=== PATIENT | female | born 1945 ===

== ENCOUNTER 2023-09-19 03:22 | Emergency (ER) | payer MEDICARE, MEDICAID, SELFPAY ==
[2023-09-19] VITALS (10 sets, daily range): BP systolic 117–150; BP diastolic 61–80; PULSE 66–79; RESP 14; TEMP 36.9; O2SAT 95–98; BMI 31.0
--- NOTE | 2023-09-19 03:31 | DI.RAD.S_ITS ---
PROCEDURE: XR SHOULDER RT MIN 2V INDICATIONS: ATRAUMATIC ARM PAIN, CAN'T LIFT SHOULDER TECHNIQUE: 3 views of the shoulder were acquired. COMPARISON: None. FINDINGS: Bones: Overall mild degenerative changes of glenohumeral and acromioclavicular joints. No displaced fracture or dislocation. Soft tissues: No suspicious soft tissue calcifications. IMPRESSION: No acute osseous abnormality. Mild osteoarthritis changes. If there is high concern for further derangement, consider MRI evaluation. Agree with prelim report. Dictated by: Jersey Owusu M.D. on 09/19/2023 at 7:53 Approved by: Jersey Owusu M.D. on 09/19/2023 at 7:54
--- NOTE | 2023-09-19 03:43 | ED_ITS ---
HPI - Extremity Injury (Lower) General Chief Complaint: Extremity Injury, Upper Stated Complaint: R arm pain Time Seen by Provider: 09/19/23 03:31 Source: patient and EMS Mode of arrival: EMS History of Present Illness HPI Narrative: 78-year-old female presents by EMS from the [facility] living [facility] for atraumatic right shoulder pain. Patient reports pain has been present for several days, she has difficulty lifting her right arm above her head due to this pain. The nursing report states that there are no as needed medications available and patient requested to be evaluated at the hospital, so transport was arranged. Patient denies known injury or accidents. Denies numbness, weakness. Pain is vague and located roughly around the mid bicep and higher. Related Data Allergies Allergy/AdvReac Type Severity Reaction Status Date / Time No Known Drug Allergies Allergy Verified 09/19/23 04:10 Review of Systems Review of Systems Narrative: See HPI Exam Initial Vital Signs Initial Vital Signs: Vital Signs Pulse Rate 78 09/19/23 03:25 Blood Pressure 150/80 H 09/19/23 03:25 Pulse Oximetry 95 09/19/23 03:25 Const: Awake, alert, no acute distress, nontoxic appearing MSK: Atraumatic, no reproducible tenderness to palpation, pain when raising arm above 90 degrees, pulses/neuro intact Skin: Warm, Dry, intact, no rashes Neuro: AO x3, CN II-XII grossly intact, moves all extremities Course Orders Ordered: Discontinued Medications Acetaminophen (Acetaminophen 325 Mg Tablet) 975 mg PO NOW ONE Stop: 09/19/23 03:44 Last Admin: 09/19/23 04:31 Dose: 975 mg Documented By: SHANNON Ibuprofen (Ibuprofen 400 Mg Tablet) 400 mg PO NOW ONE Stop: 09/19/23 06:33 Last Admin: 09/19/23 06:34 Dose: 400 mg Documented By: SHANNON Vital Signs Vital signs: Vital Signs - 8 hr 09/19/23 03:25 09/19/23 03:25 09/19/23 03:30 Temperature Pulse Rate 78 79 Pulse Rate [Bilateral Radial] Respiratory Rate Blood Pressure 150/80 H Pulse Oximetry 95 96 Oxygen Delivery Method Room Air 09/19/23 03:30 09/19/23 03:31 09/19/23 03:36 Temperature 98.4 F Pulse Rate 79 Pulse Rate [Bilateral Radial] 79 Respiratory Rate 14 Blood Pressure 135/74 150/80 H Pulse Oximetry 95 Oxygen Delivery Method Room Air 09/19/23 04:00 09/19/23 04:00 09/19/23 04:30 Temperature Pulse Rate 73 77 Pulse Rate [Bilateral Radial] Respiratory Rate Blood Pressure 122/71 Pulse Oximetry 96 95 Oxygen Delivery Method Room Air Room Air MDM - Extremity Injury (Lower) MDM Narrative Medical decision making narrative: SEVERAL DAYS OF ATRAUMATIC RIGHT SHOULDER PAIN WITH MOVEMENT, SENT IN DUE TO PATIENT REQUEST AND NO AVAILABILITY OF NEEDED MEDICATIONS AT PATIENT'S ASSISTED FACILITY. PHYSICAL EXAM IS RELATIVELY UNREMARKABLE, PATIENT WAS ABLE TO MOVE THE EXTREMITY, SHE HAS VAGUE PAIN PARTICULARLY AROUND HER MID TO UPPER BICEPS. X-RAY IMAGING SHOWS NO ACUTE FINDINGS, OSTEOPENIA NOTED. PATIENT COUNSELED TO TAKE TYLENOL NEEDED FOR PAIN AND TO FOLLOW UP WITH ORTHOPEDIC SURGERY IF SHE CONTINUES TO EXPERIENCE PAIN. Discharge Plan Departure Patient Disposition: Home Clinical Impression: Pain of upper extremity Instructions: DI for Shoulder Pain Activity Restrictions/Additional Instructions: Please follow up with Orthopedic surgery if you continued to experience shoulder pain. For [facility] assisted living: Please allow this patient to have 650mg Tylenol po Q6H prn for pain Referrals: Veronica Beatty MD [Physician] - Stand Alone Forms: Patient Portal/API
[2023-09-19] MEDS: ACETAMINOPHEN 325 MG TABLET 975 MG PO (04:31)
--- NOTE | 2023-09-19 04:49 | PC.NURSE ---
Pt has incontinence and had small bowel movement. This RN cleaned her. Pt was able to assist while in bed. Pt pants and underwear were placed in a pt belongings bag. Placed clean brief on pt and cleaned up. Bedding changed. Pt is resting in bed, no complaints at this time.
--- NOTE | 2023-09-19 06:21 | PC.NURSE ---
Pt assisted to bathroom via wheelchair. Tolerated well. Assisted back to bathroom. Didd need a new depend and was assisted into a new one. No complaints at this time.
--- NOTE | 2023-09-19 06:24 | PC.NURSE ---
Andria, daughter, was contacted and updated on pt status and ready for discharge. Verbalized understanding. Denied any further questions.
[2023-09-19] MEDS: IBUPROFEN 400 MG TABLET PO (06:34)
== END 2023-09-19 06:50 | disposition home or self-care (01) ==
PROVIDERS: Emergency Provider Emergency Medicine
DX: M25.511 Pain in right shoulder (principal)
CPT/HCPCS: 73030; 99283

== ENCOUNTER 2023-12-15 14:04 | Emergency (ER) | payer MEDICARE, MEDICAID, SELFPAY ==
[2023-12-15] VITALS (14 sets, daily range): BP systolic 100–165; BP diastolic 55–109; PULSE 44–67; RESP 12; TEMP 36.9; O2SAT 91–96; BMI 13.0
[2023-12-15] MEDS: ONDANSETRON 4 MG/2 ML INJ IV (14:26)
[2023-12-15] MEDS: TRANEXAMIC ACID 1,000 MG VIAL 1000 MG TOP (14:27)
[2023-12-15] MEDS: HYDROMORPHONE 0.5 MG INJ IV (14:30)
--- NOTE | 2023-12-15 14:33 | ED.EPISTAXIS ---
HPI - Epistaxis General Chief complaint: Nasal Problem Stated complaint: Epistaxis Time Seen by Provider: 12/15/23 14:18 Source: EMS Mode of arrival: EMS History of Present Illness HPI Narrative: 78-year-old woman currently living at [facility] presents with severe epistaxis out the left side of her nose. She has never had similar findings. No recent upper respiratory infections. She currently is on Plavix. Medics had tried multiple doses of Afrin as well as Afrin-soaked gauze pellets and blood is still frankly pouring out of her left nostril. She is given a Yankauer suction so she does not keep swallowing the amount of blood. IV has been established. Blood pressure is significantly elevated unsure if this is due to the nosebleed or caused the nosebleed but certainly does need to be bit lower. Patient is not complaining of chest pain, dyspnea or abdominal pain Related Data Allergies Allergy/AdvReac Type Severity Reaction Status Date / Time No Known Drug Allergies Allergy Verified 12/15/23 14:11 Review of Systems Review of Systems Narrative: Pertinent positive and negative findings as per HPI Patient History Social History Smoking Status: Never smoker Smoking Status: Never smoker Substance Use Type: does not use Exam Initial Vital Signs Initial Vital Signs: Vital Signs Temperature 98.4 F 12/15/23 14:09 Pulse Rate 62 12/15/23 14:09 Respiratory Rate 12 12/15/23 14:09 Pulse Oximetry 96 12/15/23 14:09 Oxygen Delivery Method Room Air 12/15/23 14:09 General: Older appearing woman, nose is being clamped with fingers as epistaxis clamps have not been effective. There is still significant amount of red blood coming from both nostrils and out through the Yankauer Respiratory: Lungs show Full and symmetrical air movement Cardiac: Regular rate and rhythm no murmurs no bruits Skin: Warm and dry, no rashes Neurologic: Grossly neurologically intact with no obvious asymmetries or abnormalities Extremities: No trauma, well perfused Psych: Cooperative, appropriate insight and affect Procedures Epistaxis Control Time of procedure: 14:36 Nostril: left Nose Prepped With: other (0.5 mg of parenteral Dilaudid is given prior to procedure) Direct Inspection: unable to visualize (Almost pulsatile blood and fairly large volume flow persists from the left nostril) Device Inserted: hemostatic balloon (7.5 cm, saturated with TXA) Device Size: 75 Patient Tolerated Procedure: well Course Orders Ordered: Discontinued Medications Hydromorphone HCl (Hydromorphone 0.5 Mg Inj) 0.5 mg IV NOW ONE Stop: 12/15/23 14:29 Last Admin: 12/15/23 14:30 Dose: 0.5 mg Documented By: Ondansetron HCl (Ondansetron 4 Mg/2 Ml Inj) 4 mg IV NOW ONE Stop: 12/15/23 14:19 Last Admin: 12/15/23 14:26 Dose: 4 mg Documented By: Tranexamic Acid (Tranexamic Acid 1,000 Mg Vial) 1,000 mg TOP NOW ONE Stop: 12/15/23 14:19 Last Admin: 12/15/23 14:27 Dose: 1,000 mg Documented By: Vital Signs Vital signs: Vital Signs - 8 hr 12/15/23 14:09 12/15/23 14:09 12/15/23 14:10 Temperature 98.4 F Pulse Rate 62 62 62 Respiratory Rate 12 Blood Pressure Pulse Oximetry 96 95 95 Oxygen Delivery Method Room Air 12/15/23 14:10 12/15/23 14:30 12/15/23 14:32 Temperature Pulse Rate 62 67 Respiratory Rate Blood Pressure 164/109 H Pulse Oximetry 93 93 Oxygen Delivery Method 12/15/23 14:32 12/15/23 14:33 12/15/23 14:33 Temperature Pulse Rate 58 L Respiratory Rate Blood Pressure 165/91 H 129/75 Pulse Oximetry 92 Oxygen Delivery Method 12/15/23 15:00 12/15/23 15:00 12/15/23 15:30 Temperature Pulse Rate 44 L 51 L Respiratory Rate Blood Pressure 108/55 L Pulse Oximetry 94 91 Oxygen Delivery Method 12/15/23 15:30 12/15/23 16:00 12/15/23 16:00 Temperature Pulse Rate 47 L Respiratory Rate Blood Pressure 104/63 102/57 L Pulse Oximetry 93 Oxygen Delivery Method MDM - Epistaxis MDM Narrative Medical decision making narrative: CC: Left-sided epistaxis Complicating co-morbidities: Patient is on Plavix Data collected from: patient, medic Differential considered: Posterior arterial nosebleed, trauma, GI bleed Exam documented above, pertinent findings include: There is far too much volume of blood coming out the left nostril after a number of doses of Afrin to do any type of direct visualization Consultations: Treatments: 7.5 cm nasal packing with balloon placed without difficulty. With balloon inflated bleeding seemed to be well-controlled. We will continue to observe. 0.5 mg of IV Dilaudid given for pain posterior the nasal packing being placed as well as help with her elevated blood pressure Re-evaluations: Discussion: Patient is feeling significantly improved. Blood pressures come down nice lady. There was no additional bleeding after the nasal balloon has been placed. Discharge Plan Departure Patient Disposition: Home Clinical Impression: Epistaxis Instructions: DI for Nosebleed Activity Restrictions/Additional Instructions: Thank you for coming in today You had a rather impressive nosebleed. We placed a pack into your nose that has a small balloon on the inside to stop the bleeding. This was quite effective. That packing with the balloon we will need to come out in a couple of days and you will need to see Dr. Lopez, the Ear Nose and Throat doctor here in [place] in his office to have it removed. I did briefly speak with him this afternoon. Their office phone number is [phone]. Please give them a call tomorrow to schedule an ER follow up appointment to remove the nasal packing. His office is aware that you will be calling You will likely notice that you have some black stools over the next couple of days from the amount of blood that you swallowed from this nosebleed. We did give you some nausea medicine however, blood in your stomach often make sure throw up. You may vomit and may notice that there is blood clots in it. This would not be completely unexpected. If you have more bleeding, increasing pain, fevers or new symptoms you do need to return to the emergency department Referrals: Doctor Fenton MD [Primary Care Provider] - Stand Alone Forms: Patient Portal/API
--- NOTE | 2023-12-15 17:20 | PC.NURSE ---
Shari called with voicemail left at 1645. Called again with another voicemail left at [phone]. Daughter, Andria Her, called with voicemail left at 1720.
--- NOTE | 2023-12-15 18:08 | PC.NURSE ---
Called [facility] again and spoke with JEANETTE Clark. Report given. JEANETTE Clark reports no transportation after 1700, although this RN attempted to call prior to 1700. [facility] RE[facility] also states unable to pay for taxi. Pt reports no money for taxi either. emissions engineer made aware, voucher provided for patient. [facility] [employer] called, ETA [id number]. [facility] states will staff ready to receive patient on arrival.
== END 2023-12-15 18:43 | disposition home or self-care (01) ==
PROVIDERS: Emergency Provider Emergency Medicine
DX: R04.0 Epistaxis (principal)
CPT/HCPCS: 30903; 96374; 96375; 99283; 99284; J1170; J2405

== ENCOUNTER 2024-01-11 19:27 | Observation (INO) | payer MEDICARE, MEDICAID, SELFPAY ==
[2024-01-11] VITALS (39 sets, daily range): BP systolic 82–111; BP diastolic 50–70; PULSE 54–105; RESP 18–39; TEMP 36.9; O2SAT 95–100
--- NOTE | 2024-01-11 19:38 | EKG_ITS ---
[address] [address] Test Date: 2024-01-11 Pat Name: Christelle Mobley Department: [facility] Room: Gender: Female Air Pollution Analyst: FRANK : 1945 Requested By: Order Number: [id number] Reading MD: Lj Nava Measurements Intervals [place] Rate: 77 P: [place]: QRS: 8 QRSD: 80 T: 47 QT: 388 QTc: 439 Interpretive Statements Atrial fibrillation Nonspecific T wave abnormality Electronically Signed On 01-12-2024 8:48:56 PDT by Lj Nava
--- NOTE | 2024-01-11 19:46 | PC.NURSE ---
Dr Gomes notified of BP of
[2024-01-11 20:06] LABS: Prothrombin Time 11.5 SECONDS (9.4-12.5)
[2024-01-11 20:08] LABS: PTT Partial Thromboplastin Tim 27 SECONDS (25.1-36.5)
[2024-01-11 20:10] LABS: Alanine Aminotransferase 13 IU/L (<35); Albumin 3.8 g/dL (3.5-5.0); Albumin Globulin Ratio 1.5 (1.0-2.8); Alkaline Phosphatase 73 U/L (38-126); Aspartate Aminotransferase 20 IU/L (14-36); BUN Creatinine Ratio 59.5 (6-22); Bilirubin Total 0.3 mg/dL (0.2-1.3); Blood Urea Nitrogen 66 mg/dL (7-17); Calcium 9.4 mg/dL (8.4-10.2); Carbon Dioxide 21 mmol/L (22-32); Chloride 108 mmol/L (98-107); Estimated Glomerular Filt Rate 50 mL/min (>60); Globulin 2.6 g/dL (1.7-4.1); Glucose 141 mg/dL (80-110); HEMOLYSIS < 15 (0-50); Potassium 4.3 mmol/L (3.4-5.1); Sodium 139 mmol/L (137-145); Total Protein 6.4 g/dL (6.3-8.2)
[2024-01-11] MEDS: PANTOPRAZOLE 40 MG VIAL 80 MG IV (20:12)
[2024-01-11 20:13] LABS: Add Manual Diff / Slide Review NO; Basophils Absolute Auto 100 /uL (0-100); Basophils Percent Auto 0.7 % (0-2); Eosinophils Absolute Auto 100 /uL (0-450); Eosinophils Percent Auto 0.8 % (2-4); Lymphocytes Absolute Auto 900 /uL (1100-4500); Lymphocytes Percent Auto 9.5 % (25-40); Mean Corpuscular HGB Conc 32.3 % (30-36); Mean Corpuscular Hemoglobin 27.9 PG (26-34); Mean Corpuscular Volume 86.5 fL (80-100); Monocytes Absolute Auto 600 /uL (0-900); Monocytes Percent Auto 6.3 % (3-14); Neutrophils Absolute Auto 7600 /uL (1500-7000); Neutrophils Percent Auto 82.7 % (50-75); Platelet Count 227 X10^3/uL (150-400); Red Blood Cell Count 3.92 X10^6/uL (4.0-5.2); Red Cell Distribution Width 18.9 % (11.6-14.8); White Blood Cell Count 9.1 X10^3/uL (4.5-11.0)
--- NOTE | 2024-01-11 20:35 | ED.GIBLEED ---
HPI - GI Bleed General Chief complaint: GI Bleed Stated complaint: Abd Pain Time Seen by Provider: 01/11/24 19:47 Source: EMS History of Present Illness HPI Narrative: 78-year-old female presents by EMS from [facility] for evaluation of hematemesis. Patient complained of abdominal pain at the living facility and then vomited, reportedly blood and blood clots. Patient takes aspirin and Plavix per medical record list, no other blood thinners. On arrival patient was pleasantly confused, denying any complaints. Related Data Home Medications Medication Instructions Recorded Confirmed acetaminophen 325 mg tablet 325 mg PO PRN PRN Pain 01/12/24 01/12/24 alendronate 10 mg tablet 10 mg PO DAILY 01/12/24 01/12/24 aspirin 81 mg tablet,delayed 81 mg PO DAILY 01/12/24 01/12/24 release atorvastatin 20 mg tablet 20 mg PO DAILY 01/12/24 01/12/24 clopidogrel 75 mg tablet 75 mg PO DAILY 01/12/24 01/12/24 ferrous sulfate 324 mg (65 mg 324 mg PO DAILY 01/12/24 01/12/24 iron) tablet,delayed release lisinopril 5 mg tablet 5 mg PO DAILY 01/12/24 01/12/24 metoprolol tartrate 25 mg tablet 25 mg PO DAILY 01/12/24 01/12/24 sodium chloride 0.65 % nasal mist 1 spray intranasal PRN PRN nose 01/12/24 01/12/24 bleed sodium chloride 0.9 % spray 1 spray miscellaneous PRN PRN 01/12/24 01/12/24 moisten nose Allergies Allergy/AdvReac Type Severity Reaction Status Date / Time No Known Drug Allergies Allergy Verified 12/15/23 14:11 Patient History Social History Smoking Status: Never smoker Smoking Status: Never smoker Substance Use Type: does not use Exam Initial Vital Signs Initial Vital Signs: Vital Signs Temperature 98.5 F 01/11/24 19:30 Pulse Rate 75 01/11/24 19:30 Respiratory Rate 18 01/11/24 19:30 Blood Pressure 84/52 L 01/11/24 19:30 Pulse Oximetry 96 01/11/24 19:30 Oxygen Delivery Method Room Air 01/11/24 19:30 Const: Awake, alert, no acute distress Cardiac: regular rate, regular rhythm RESP: unlabored, clear bilaterally, no wheezing GI: Soft, nontender, nondistended Skin: Warm, Dry, intact, no rashes Neuro: AO x2, CN II-XII grossly intact, moves all extremities Course Orders Ordered: ED Orders 01/11/24 22:11 HH [Hemoglobin and Hematocrit] Stat 01/11/24 22:46 CT angio abdomen pelvis Stat Hydromorphone HCl (Hydromorphone 0.5 Mg Inj) 0.5 mg IV Q2H PRN PRN Reason: Pain, Severe (7-10) Dextrose/Lactated Ringer's (Dextrose 5%-Lactated Ringers) 1,000 mls @ 100 mls/hr IV CONT ILA Last Admin: 01/12/24 02:01 Dose: 100 mls/hr Documented By: SHOBHA Naloxone HCl (Naloxone 0.4 Mg/Ml Vial) 0.2 mg IV Q2MIN PRN PRN Reason: Opiate Reversal Ondansetron HCl (Ondansetron 4 Mg/2 Ml Inj) 4 mg IV NOW PRN PRN Reason: Nausea And Vomiting Ondansetron HCl (Ondansetron 4 Mg Odt) 4 mg SL NOW PRN PRN Reason: Nausea And Vomiting Ondansetron HCl (Ondansetron 4 Mg/2 Ml Inj) 4 mg IV Q4HR PRN PRN Reason: nausea Pantoprazole Sodium (Pantoprazole 40 Mg Vial) 40 mg IV BID [facility] Discontinued Medications Pantoprazole Sodium (Pantoprazole 40 Mg Vial) 80 mg IV NOW ONE Stop: 01/11/24 19:48 Last Admin: 01/11/24 20:12 Dose: 80 mg Documented By: TALA Vital Signs Vital signs: Vital Signs - 8 hr 01/11/24 23:30 01/12/24 00:00 01/12/24 00:22 Pulse Rate 64 57 L 55 L Respiratory Rate 23 25 H 34 H Blood Pressure Pulse Oximetry 97 96 97 Oxygen Delivery Method 01/12/24 00:22 01/12/24 00:25 01/12/24 00:30 Pulse Rate 54 L 56 L Respiratory Rate 25 H 32 H Blood Pressure 100/59 L 100/59 L Pulse Oximetry 95 97 Oxygen Delivery Method Room Air MDM - GI Bleed Differential Diagnosis Differential diagnosis: Likely hemorrhoids, Upper gastrointestinal hemorrhage and Lower gastrointestinal hemorrhage Lab Data 01/12/24 05:25 01/12/24 05:25 Labs: Lab Results 01/11/24 01/11/24 01/11/24 Range/Units 19:15 20:45 22:11 WBC 9.1 (4.5-11.0) X10^3/uL RBC 3.92 L (4.0-5.2) X10^6/uL Hgb 11.0 L 9.3 L (12.0-16.0) g/dL Hct 34.0 L 29.3 L (36-46) % MCV 86.5 (80-100) fL MCH 27.9 (26-34) PG MCHC 32.3 (30-36) % RDW 18.9 H (11.6-14.8) % Plt Count 227 (150-400) X10^3/uL Neut % (Auto) 82.7 H (50-75) % Lymph % (Auto) 9.5 L (25-40) % Miller % (Auto) 6.3 (3-14) % Eos % (Auto) 0.8 L (2-4) % Baso % (Auto) 0.7 (0-2) % Neut # (Auto) 7600 H (7727-2338) /uL Lymph # (Auto) 900 L (9773-9556) /uL Miller # (Auto) 600 (0-900) /uL Eos # (Auto) 100 (0-450) /uL Baso # (Auto) 100 (0-100) /uL PT 11.5 (9.4-12.5) SECONDS INR 1.0 (0.9-1.3) APTT 27 (25.1-36.5) SECONDS Sodium 139 (137-145) mmol/L Potassium 4.3 (3.4-5.1) mmol/L Chloride 108 H (98-107) mmol/L Carbon Dioxide 21 L (22-32) mmol/L BUN 66 H (7-17) mg/dL Creatinine 1.11 H (0.52-1.04) mg/dL Estimated GFR 50 L (>60) mL/min BUN/Creatinine Ratio 59.5 H (6-22) Glucose 141 H (80-110) mg/dL Calcium 9.4 (8.4-10.2) mg/dL Total Bilirubin 0.3 (0.2-1.3) mg/dL AST 20 (14-36) IU/L ALT 13 (<35) IU/L Alkaline Phosphatase 73 (38-126) U/L Total Protein 6.4 (6.3-8.2) g/dL Albumin 3.8 (3.5-5.0) g/dL Globulin 2.6 (1.7-4.1) g/dL Albumin/Globulin Ratio 1.5 (1.0-2.8) Urine RBC None seen (0-5/HPF) Urine WBC 1-5/hpf (0-5/HPF) Ur Squamous Epith Cells 0-1 /hpf (0-5/HPF) Urine Bacteria Few (2-10) H (None) Ur Culture Indicated? Specimen cultured Vol Urine Centrifuged 10ml (spun) Urine Dip Bedside Urine Glucose Negative Bedside Urine Bilirubin - Negative Bedside Urine Ketone - Negative Urine Specific [place] 1.015 Bedside Urine Occult Blood - Negative Bedside Urine pH 6.0 Bedside Urine Protein - Negative Bedside Urine Urobilinogen - Negative Bedside Urine Nitrite - Negative Bedside Urine Leukocytes + [address] scan - abdomen/pelvis: Radiologist's Impression: PROCEDURE: CT ANGIO ABDOMEN PELVIS INDICATIONS: HEMATEMESIS TECHNIQUE: After the administration of intravenous contrast, 2.5 mm sections acquired from the diaphragm to the iliac crests. 10 mm maximum intensity projection (MIP) coronal and sagittal reformats were then performed. For radiation dose reduction, the following was used: automated exposure control. COMPARISON: [facility], CT, CT KUB, 03/16/2023, 19:07. FINDINGS: Image quality: Diagnostic. Abdominal aorta: Included portion of the descending thoracic aorta is tortuous. No aortic aneurysm or evidence of acute aortic syndrome. moderate aortic atherosclerotic calcifications. Mesenteric arteries: Mild atherosclerotic calcifications within the celiac trunk and its branches without hemodynamically significant stenosis. There is narrowing of the proximal superior mesenteric artery estimated at 40% narrowed. Inferior mesenteric artery demonstrates mild atherosclerotic calcifications. Renal arteries: Atherosclerotic calcifications are seen at the origin of the right renal artery without intermittently significant stenosis. An accessory left renal artery is noted. Lower chest: Unremarkable. ABDOMEN: Liver: No solid mass. Gallbladder: Suspected gallstones. No pericholecystic inflammatory changes. Biliary ducts: No biliary dilation. Pancreas: No ductal dilation. Spleen: Size is within normal limits. Adrenal Glands: No adrenal nodules. Kidneys and Ureters: No hydronephrosis. No solid mass. No complex renal cystic lesion which requires follow up. Stomach and Bowel: Stomach is nondistended. Multiple diverticula are seen in the colon without signs of acute diverticulitis. No intraluminal extravasation of intravenous contrast material. Peritoneum: No abnormal intraperitoneal fluid. No free air. Ventral Wall: Fat containing periumbilical hernia. Abdominal Nodes: No retroperitoneal or mesenteric adenopathy by size criteria. Vessels: Aorta, as above. Normal IVC. PELVIS: Pelvic Organs: Status post hysterectomy. Bladder: Unremarkable. Pelvic Nodes: No enlarged lymph nodes. Miscellaneous: No inguinal hernias are seen. Bones: No aggressive osseous abnormality. Postsurgical changes from right total hip arthroplasty with associated metal streak artifact. Generalized osteopenia. Degenerative changes are seen in the spine. IMPRESSION: 1. No active extravasation of intravenous contrast material. 2. 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 3. Colonic diverticulosis without acute diverticulitis. 4. Suspected cholelithiasis. Approved by: Hardy Veliz M.D. on 01/11/2024 at 23:55 MDM Narrative Medical decision making narrative: Hematemesis at assisted living facility. Currently denying complaints. Aspirin and Plavix on medication list, no other blood thinners present on AUG. Protonix ordered. Laboratory work reviewed, initial hemoglobin 11, no previous in our system for comparison. CT angio of the abdomen shows no extravasation of contrast. Repeat hemoglobin 9.3. Patient's POLST form has patient as DNR, treatment towards comfort measures only. Deferred speaking to general surgery about endoscopy as this would fall outside of comfort directed care. Admitted for observation. While in the ED patient had no further episodes of bleeding and continued to deny any and all complaints. Discharge Plan Departure Patient Disposition: Admitted As Inpatient Clinical Impression: Blood transfusion during current hospitalization Admit Date/Time: 01/12/24 00:33 Admit Provider: Lew Beavers
[2024-01-11 22:24] LABS: Hematocrit 29.3 % (36-46); Hemoglobin 9.3 g/dL (12.0-16.0)
[2024-01-11 22:27] LABS: Bacteria Urine Few (2-10); Culture Indicated Urine Specimen Cultured; RBC Urine None Seen (0-5/HPF); Squamous Epithelial Cell Urine 0-1 /HPF (0-5/HPF); Urine Volume 10mL (spun); WBC Urine 1-5/HPF (0-5/HPF)
--- NOTE | 2024-01-11 22:46 | DI.CT.S_ITS ---
PROCEDURE: CT ANGIO ABDOMEN PELVIS INDICATIONS: HEMATEMESIS TECHNIQUE: After the administration of intravenous contrast, 2.5 mm sections acquired from the diaphragm to the iliac crests. 10 mm maximum intensity projection (MIP) coronal and sagittal reformats were then performed. For radiation dose reduction, the following was used: automated exposure control. COMPARISON: [facility], CT, CT KUB, 03/16/2023, 19:07. FINDINGS: Image quality: Diagnostic. Abdominal aorta: Included portion of the descending thoracic aorta is tortuous. No aortic aneurysm or evidence of acute aortic syndrome. moderate aortic atherosclerotic calcifications. Mesenteric arteries: Mild atherosclerotic calcifications within the celiac trunk and its branches without hemodynamically significant stenosis. There is narrowing of the proximal superior mesenteric artery estimated at 40% narrowed. Inferior mesenteric artery demonstrates mild atherosclerotic calcifications. Renal arteries: Atherosclerotic calcifications are seen at the origin of the right renal artery without intermittently significant stenosis. An accessory left renal artery is noted. Lower chest: Unremarkable. ABDOMEN: Liver: No solid mass. Gallbladder: Suspected gallstones. No pericholecystic inflammatory changes. Biliary ducts: No biliary dilation. Pancreas: No ductal dilation. Spleen: Size is within normal limits. Adrenal Glands: No adrenal nodules. Kidneys and Ureters: No hydronephrosis. No solid mass. No complex renal cystic lesion which requires follow up. Stomach and Bowel: Stomach is nondistended. Multiple diverticula are seen in the colon without signs of acute diverticulitis. No intraluminal extravasation of intravenous contrast material. Peritoneum: No abnormal intraperitoneal fluid. No free air. Ventral Wall: Fat containing periumbilical hernia. Abdominal Nodes: No retroperitoneal or mesenteric adenopathy by size criteria. Vessels: Aorta, as above. Normal IVC. PELVIS: Pelvic Organs: Status post hysterectomy. Bladder: Unremarkable. Pelvic Nodes: No enlarged lymph nodes. Miscellaneous: No inguinal hernias are seen. Bones: No aggressive osseous abnormality. Postsurgical changes from right total hip arthroplasty with associated metal streak artifact. Generalized osteopenia. Degenerative changes are seen in the spine. IMPRESSION: 1. No active extravasation of intravenous contrast material. 2. 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 3. Colonic diverticulosis without acute diverticulitis. 4. Suspected cholelithiasis. Approved by: Hardy Veliz M.D. on 01/11/2024 at 23:55
[2024-01-12] VITALS (9 sets, daily range): BP systolic 96–122; BP diastolic 49–67; PULSE 54–79; RESP 16–34; TEMP 36.2–36.6; O2SAT 95–98; BMI 30.2
[2024-01-12] MEDS: DEXTROSE 5%-LACTATED RINGERS 1,000 ML 100 ML IV ×3 (02:01→20:40)
--- NOTE | 2024-01-12 03:00 | PC.NURSE ---
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 Able to follow commands. Denies pain, nausea, SOB, or dizziness. VSS, O2 saturation 97% on RA. Cont tele monitoring & p/ox in place. IVF infusing as ordered. Patient is NPO. Ambulatory w/ 1PA & FWW. Oriented to call-light, fall precautions in place. Plan of care ongoing.
[2024-01-12 06:08] LABS: Add Manual Diff / Slide Review NO; Basophils Absolute Auto 0 /uL (0-100); Basophils Percent Auto 0.8 % (0-2); Eosinophils Absolute Auto 100 /uL (0-450); Eosinophils Percent Auto 1.1 % (2-4); Hematocrit 28.2 % (36-46); Hemoglobin 9.1 g/dL (12.0-16.0); Lymphocytes Absolute Auto 800 /uL (1100-4500); Lymphocytes Percent Auto 12.7 % (25-40); Mean Corpuscular HGB Conc 32.3 % (30-36); Mean Corpuscular Volume 86.7 fL (80-100); Monocytes Absolute Auto 700 /uL (0-900); Monocytes Percent Auto 11.5 % (3-14); Neutrophils Absolute Auto 4500 /uL (1500-7000); Neutrophils Percent Auto 73.9 % (50-75); Platelet Count 163 X10^3/uL (150-400); Red Blood Cell Count 3.25 X10^6/uL (4.0-5.2); Red Cell Distribution Width 18.8 % (11.6-14.8); White Blood Cell Count 6.1 X10^3/uL (4.5-11.0)
--- NOTE | 2024-01-12 06:15 | P.HP_ITS ---
History of Present Illness History of Present Illness Date Patient Seen: 01/12/24 Chief complaint: Abd Pain Narrative: 78 y/o resident of [facility], presented after she vomited blood. She was nauseated and had vague epigastric tenderness and she vomitted small amount of blood and blood clots before her arrival to ED. In the ED she did not have any further episodes. She was given 80 mg of Protonix IV. Hb > 11. She had severe left epistaxis a month ago when she was seen in ED and packed. No additional history of bleed. She is on ASA and Plavix. [facility] Social History Smoking Status: Never smoker Meds Home Medications and Allergies Home Medications Medication Instructions Recorded Confirmed Type acetaminophen 325 mg tablet 325 mg PO PRN PRN Pain 01/12/24 01/12/24 History alendronate 10 mg tablet 10 mg PO DAILY 01/12/24 01/12/24 History aspirin 81 mg tablet,delayed 81 mg PO DAILY 01/12/24 01/12/24 History release atorvastatin 20 mg tablet 20 mg PO DAILY 01/12/24 01/12/24 History clopidogrel 75 mg tablet 75 mg PO DAILY 01/12/24 01/12/24 History ferrous sulfate 324 mg (65 mg 324 mg PO DAILY 01/12/24 01/12/24 History iron) tablet,delayed release lisinopril 5 mg tablet 5 mg PO DAILY 01/12/24 01/12/24 History metoprolol tartrate 25 mg tablet 25 mg PO DAILY 01/12/24 01/12/24 History sodium chloride 0.65 % nasal mist 1 spray intranasal PRN PRN nose 01/12/24 01/12/24 History bleed sodium chloride 0.9 % spray 1 spray miscellaneous PRN PRN 01/12/24 01/12/24 History moisten nose Allergies Allergy/AdvReac Type Severity Reaction Status Date / Time No Known Drug Allergies Allergy Verified 12/15/23 14:11 Review of Systems Review of Systems Narrative: poor historian, she said that she takes no medications while on at least 10 scheduled meds Cardiovascular Comments: w/o chest pain Respiratory Comments: w/o shortness of breath Gastrointestinal Comments: epigastric tenderness, not at the time of admission nausea hematemesis Hematologic/Lymphatic Comments: severe nosebleed a month ago Exam Vital Signs (past 8 hours): - 01/11/24 22:30 01/11/24 23:00 01/11/24 23:30 Temperature Pulse Rate 57 L 57 L 64 Respiratory Rate 21 24 23 Blood Pressure Pulse Oximetry 98 97 Oxygen Delivery Method Oxygen Flow Rate 01/12/24 00:00 01/12/24 00:22 01/12/24 00:22 Temperature Pulse Rate 57 L 55 L Respiratory Rate 25 H 34 H Blood Pressure 100/59 L Pulse Oximetry 96 97 Oxygen Delivery Method Oxygen Flow Rate 01/12/24 00:25 01/12/24 00:30 01/12/24 02:00 Temperature 97.6 F Pulse Rate 54 L 56 L 79 Respiratory Rate 25 H 32 H 18 Blood Pressure 100/59 L 100/61 Pulse Oximetry 95 97 97 Oxygen Delivery Method Room Air Oxygen Flow Rate 0 01/12/24 02:29 Temperature Pulse Rate Respiratory Rate Blood Pressure Pulse Oximetry Oxygen Delivery Method Room Air Oxygen Flow Rate Oxygen Delivery Method Room Air Oxygen Flow Rate 0 Const Other: in no distress HENMT Other: normocephalic Neck Other: supple Resp Other: CTA Cardio Other: RRR GI Other: abdomen not distended, not tender Skin Other: w/o rashes Extrem Other: w/o swelling Psych Other: memory deficits Objective Labs 01/12/24 05:25 01/11/24 19:15 Labs: Laboratory Results - last 24 hr 01/11/24 01/11/24 01/11/24 19:15 20:45 22:11 WBC 9.1 RBC 3.92 L Hgb 11.0 L 9.3 L Hct 34.0 L 29.3 L MCV 86.5 MCH 27.9 MCHC 32.3 RDW 18.9 H Plt Count 227 Neut % (Auto) 82.7 H Lymph % (Auto) 9.5 L Wallace % (Auto) 6.3 Eos % (Auto) 0.8 L Baso % (Auto) 0.7 Neut # (Auto) 7600 H Lymph # (Auto) 900 L Wallace # (Auto) 600 Eos # (Auto) 100 Baso # (Auto) 100 PT 11.5 INR 1.0 APTT 27 Sodium 139 Potassium 4.3 Chloride 108 H Carbon Dioxide 21 L BUN 66 H Creatinine 1.11 H Estimated GFR 50 L BUN/Creatinine Ratio 59.5 H Glucose 141 H Calcium 9.4 Total Bilirubin 0.3 AST 20 ALT 13 Alkaline Phosphatase 73 Total Protein 6.4 Albumin 3.8 Globulin 2.6 Albumin/Globulin Ratio 1.5 Urine RBC None seen Urine WBC 1-5/hpf Ur Squamous Epith Cells 0-1 /hpf Urine Bacteria Few (2-10) H Ur Culture Indicated? Specimen cultured Vol Urine Centrifuged 10ml (spun) 01/12/24 05:25 WBC 6.1 RBC 3.25 L Hgb 9.1 L Hct 28.2 L MCV 86.7 MCH 28.0 MCHC 32.3 RDW 18.8 H Plt Count 163 Neut % (Auto) 73.9 Lymph % (Auto) 12.7 L Wallace % (Auto) 11.5 Eos % (Auto) 1.1 L Baso % (Auto) 0.8 Neut # (Auto) 4500 Lymph # (Auto) 800 L Wallace # (Auto) 700 Eos # (Auto) 100 Baso # (Auto) 0 PT INR APTT Sodium Potassium Chloride Carbon Dioxide BUN Creatinine Estimated GFR BUN/Creatinine Ratio Glucose Calcium Total Bilirubin AST ALT Alkaline Phosphatase Total Protein Albumin Globulin Albumin/Globulin Ratio Urine RBC Urine WBC Ur Squamous Epith Cells Urine Bacteria Ur Culture Indicated? Vol Urine Centrifuged Assessment & Plan Assessment and plan (1) Upper GI bleed: Status: Acute (2) Acute posthemorrhagic anemia: Status: Acute (3) HTN (hypertension): Status: Acute Assessment & Plan narrative: Upper GI Bleed - NPO, IV PPI, monitored CBC - IVFs - ASA and Plavix held - if deteriorates she will need EGD HTN - borderline hypotensive, holding home Lisinopril and metoprolol Memory Loss - likely chronic - supportive care DVT prophylaxis - SCDs Time-Based Coding :: [TOTAL MINUTES] spent with patient and on the chart (including review of chart, obtaining history, exam, reviewing outside data, placing orders, documenting exam and treatment plan, and counseling patient) on [DATE].
[2024-01-12 06:29] LABS: BUN Creatinine Ratio 58.2 (6-22); Blood Urea Nitrogen 46 mg/dL (7-17); Calcium 8.3 mg/dL (8.4-10.2); Carbon Dioxide 22 mmol/L (22-32); Chloride 112 mmol/L (98-107); Estimated Glomerular Filt Rate > 60 mL/min (>60); Glucose 115 mg/dL (80-110); HEMOLYSIS < 15 (0-50); Sodium 138 mmol/L (137-145)
--- NOTE | 2024-01-12 07:57 | P.HP_ITS ---
History of Present Illness History of Present Illness Date Patient Seen: 01/12/24 Chief complaint: Abd Pain Narrative: From night doctor: 78 y/o resident of [facility], presented after she vomited blood. She was nauseated and had vague epigastric tenderness and she vomited small amount of blood and blood clots before her arrival to ED. In the ED she did not have any further episodes. She was given 80 mg of Protonix IV. Hb > 11. She had severe left epistaxis a month ago when she was seen in ED and packed. No additional history of bleed. She is on ASA and Plavix. Additional information: She can not give a whole lot of additional detail about what happened. She denies any abdominal pain or recent melena or blood per rectum. She denies new, or recent nosebleed. She has had no recurrent regurgitation of blood since arriving. Her hemoglobin is stable. She was in an adult family home in [place]. She also can not say why she was on aspirin and Plavix. She denies history of heart stents, or TIA/CVA. [facility] Social History Smoking Status: Never smoker Meds Home Medications and Allergies Home Medications Medication Instructions Recorded Confirmed Type acetaminophen 325 mg tablet 325 mg PO PRN PRN Pain 01/12/24 01/12/24 History alendronate 10 mg tablet 10 mg PO DAILY 01/12/24 01/12/24 History aspirin 81 mg tablet,delayed 81 mg PO DAILY 01/12/24 01/12/24 History release atorvastatin 20 mg tablet 20 mg PO DAILY 01/12/24 01/12/24 History clopidogrel 75 mg tablet 75 mg PO DAILY 01/12/24 01/12/24 History ferrous sulfate 324 mg (65 mg 324 mg PO DAILY 01/12/24 01/12/24 History iron) tablet,delayed release lisinopril 5 mg tablet 5 mg PO DAILY 01/12/24 01/12/24 History metoprolol tartrate 25 mg tablet 25 mg PO DAILY 01/12/24 01/12/24 History sodium chloride 0.65 % nasal mist 1 spray intranasal PRN PRN nose 01/12/24 01/12/24 History bleed sodium chloride 0.9 % spray 1 spray miscellaneous PRN PRN 01/12/24 01/12/24 History moisten nose Allergies Allergy/AdvReac Type Severity Reaction Status Date / Time No Known Drug Allergies Allergy Verified 12/15/23 14:11 Review of Systems Review of Systems Narrative: All else reviewed and otherwise unremarkable except as noted in the history and physical. Exam Vital Signs (past 8 hours): - 01/12/24 00:00 01/12/24 00:22 01/12/24 00:22 Temperature Pulse Rate 57 L 55 L Respiratory Rate 25 H 34 H Blood Pressure 100/59 L Pulse Oximetry 96 97 Oxygen Delivery Method Oxygen Flow Rate 01/12/24 00:25 01/12/24 00:30 01/12/24 02:00 Temperature 97.6 F Pulse Rate 54 L 56 L 79 Respiratory Rate 25 H 32 H 18 Blood Pressure 100/59 L 100/61 Pulse Oximetry 95 97 97 Oxygen Delivery Method Room Air Oxygen Flow Rate 0 01/12/24 02:29 Temperature Pulse Rate Respiratory Rate Blood Pressure Pulse Oximetry Oxygen Delivery Method Room Air Oxygen Flow Rate Oxygen Delivery Method Room Air Oxygen Flow Rate 0 Narrative Exam Narrative: NAD, alert and oriented, fluent speech, calm. Slow to answer questions. Normocephalic skull, EOMI, anicteric sclera, symmetric pupils. Oropharynx unremarkable, no droop. Neck supple, midline trachea, no adenopathy. Lungs clear, normal rate and effort. Heart regular, no murmur gallop or rub. Abdomen is soft, non distended and non tender. Extremities are free of edema. Skin is free of rash or lesions. Joints are not swollen or deformed. Judgment appears to be abnormal. Objective Labs 01/12/24 05:25 01/12/24 05:25 Labs: Laboratory Results - last 24 hr 01/11/24 01/11/24 01/11/24 19:15 20:45 22:11 WBC 9.1 RBC 3.92 L Hgb 11.0 L 9.3 L Hct 34.0 L 29.3 L MCV 86.5 MCH 27.9 MCHC 32.3 RDW 18.9 H Plt Count 227 Neut % (Auto) 82.7 H Lymph % (Auto) 9.5 L [place] % (Auto) 6.3 Eos % (Auto) 0.8 L Baso % (Auto) 0.7 Neut # (Auto) 7600 H Lymph # (Auto) 900 L [place] # (Auto) 600 Eos # (Auto) 100 Baso # (Auto) 100 PT 11.5 INR 1.0 APTT 27 Sodium 139 Potassium 4.3 Chloride 108 H Carbon Dioxide 21 L BUN 66 H Creatinine 1.11 H Estimated GFR 50 L BUN/Creatinine Ratio 59.5 H Glucose 141 H Calcium 9.4 Total Bilirubin 0.3 AST 20 ALT 13 Alkaline Phosphatase 73 Total Protein 6.4 Albumin 3.8 Globulin 2.6 Albumin/Globulin Ratio 1.5 Urine RBC None seen Urine WBC 1-5/hpf Ur Squamous Epith Cells 0-1 /hpf Urine Bacteria Few (2-10) H Ur Culture Indicated? Specimen cultured Vol Urine Centrifuged 10ml (spun) 01/12/24 05:25 WBC 6.1 RBC 3.25 L Hgb 9.1 L Hct 28.2 L MCV 86.7 MCH 28.0 MCHC 32.3 RDW 18.8 H Plt Count 163 Neut % (Auto) 73.9 Lymph % (Auto) 12.7 L [place] % (Auto) 11.5 Eos % (Auto) 1.1 L Baso % (Auto) 0.8 Neut # (Auto) 4500 Lymph # (Auto) 800 L [place] # (Auto) 700 Eos # (Auto) 100 Baso # (Auto) 0 PT INR APTT Sodium 138 Potassium 4.0 Chloride 112 H Carbon Dioxide 22 BUN 46 H Creatinine 0.79 Estimated GFR > 60 BUN/Creatinine Ratio 58.2 H Glucose 115 H Calcium 8.3 L Total Bilirubin AST ALT Alkaline Phosphatase Total Protein Albumin Globulin Albumin/Globulin Ratio Urine RBC Urine WBC Ur Squamous Epith Cells Urine Bacteria Ur Culture Indicated? Vol Urine Centrifuged Assessment & Plan Assessment & Plan narrative: 1. Upper GI Bleed, present on admission and active. - NPO, IV PPI, monitored CBC - IVFs - ASA and Plavix held - if deteriorates she will need EGD HTN, present on admission and active. - borderline hypotensive, holding home Lisinopril and metoprolol Memory Loss, present on admission and active. - likely chronic - supportive care PLAN: -ice water and monitor for recurrent hematemesis. -monitor hemoglobin. -monitor stools. -hold antiplatelet therapy. GUILHERME is 01/12 if no recurrent bleeding. We will likely discharge on an PPI b.i.d.. DVT prophylaxis - SCDs Time-Based Coding :: 40 min spent with patient and on the chart (including review of chart, obtaining history, exam, reviewing outside data, placing orders, documenting exam and treatment plan, and counseling patient) on 01/11. Quality MIPS - Admit I confirm the patient?s Advance Care Plan is present, Code status is documented, Surrogate decision maker is in patient?s record [If Yes, STOP here]: Yes The patient?s Advance Care plan is not present because I confirmed today that the patient does not wish or was not able to name a surrogate decision maker or provide an Advance Care Plan.: Yes
[2024-01-12] MEDS: PANTOPRAZOLE 40 MG VIAL IV ×2 (09:49→20:31)
[2024-01-12] MEDS: ACETAMINOPHEN 325 MG TABLET 650 MG PO ×2 (12:23→23:55)
--- NOTE | 2024-01-12 14:05 | CM.DANOTE ---
Patient is an 78 yo female who was admitted OBS Status on 01/12/24 today for Abd Pain/GI bleed. Pt has [employer]ARP MCR and ANALY for insurance and her PCP is not listed but likely Dr. Ashraf. EMR was reviewed. Per MD, pt with vomiting and emesis and admitted for upper GI Bleed and anemia and per Surgeon no scope needed at this time unless pt not managed conservatively. Monitoring H&H. Pt sleeping soundly and requests SW to come back. POA scanned into chart and is pt's Dtr Andria in [place] and her POLST shows Comfort Measures. SW called [facility] and confirmed that pt is a [facility] resident and she moved into their facility in August 2023 this year a few months ago and pt is quiet but participates in meals and events and ambulates with FWW independently and they assist with meals and meds. SW updated on possible discharge back tomorrow pending her labs and to determine if PT eval might be needed if pt below baseline due to anemia. Plan: SW to follow closely for progress to determine if PT eval needed and confirm plan of return to [facility] at d/c and to fax d/c summ and signed med list at discharge. JULIA Brady Discharge Planning/Care Management CM Discharge Assessment Start: 01/12/24 14:02 Freq: Status: Active Protocol: Document 01/12/24 14:03 BF (Rec: 01/12/24 14:05 [id number]) Discharge Planning Assessment Assigned Emergency Room Rn JULIA Mireles DPOA/Assigned Designee Name Dtr Andria Contact Information [phone] Advance Directives? Yes: Yes/POLST Advance Directives on File Yes History Provided By Patient,Family Member,Medical Record Has Patient been admitted in last 30 No days? Prior Living Arrangements Assisted Living Comment [facility] none Type of transporation used prior to Relies on Others admit Independent with ADL's Yes: mostly Is patient alert and oriented? Yes Needs Assistance With Meal Prep,Managing Medications ,Home Chores / Shopping Caregiver for Another No DME Already Rented / Owned FWW / Walker Comment Return to [facility] Barriers to Discharge No Discharge Plan Assisted Living Facility Transportation Arrangement Likely facility van Referrals Initiated None needed Additional Comment Pending possible PT eval if needed Whiteboard Updated in Patient Room with Yes name and ext. # of Emergency Room Rn Review Status In Process Please Provide Date Initial DC 01/12/24 Assessment Was Performed Next Review Type Continued Stay Review
[2024-01-13] VITALS: BP 130/77; PULSE 80; RESP 17; TEMP 36.4; O2SAT 96
[2024-01-13 04:00] VITALS: BP 117/61; PULSE 63; RESP 17; TEMP 36.3; O2SAT 97
[2024-01-13] MEDS: DEXTROSE 5%-LACTATED RINGERS 1,000 ML 100 ML IV (06:03)
[2024-01-13 08:00] VITALS: BP 123/69; PULSE 58; RESP 20; O2SAT 95
[2024-01-13] MEDS: PANTOPRAZOLE 40 MG VIAL IV (08:55)
--- NOTE | 2024-01-13 10:18 | PM.DS.1 ---
History of Present Illness History of Present Illness Chief complaint: Abd Pain Narrative: From night doctor: 78 y/o resident of [facility], presented after she vomited blood. She was nauseated and had vague epigastric tenderness and she vomited small amount of blood and blood clots before her arrival to ED. In the ED she did not have any further episodes. She was given 80 mg of Protonix IV. Hb > 11. She had severe left epistaxis a month ago when she was seen in ED and packed. No additional history of bleed. She is on ASA and Plavix. Additional information: She can not give a whole lot of additional detail about what happened. She denies any abdominal pain or recent melena or blood per rectum. She denies new, or recent nosebleed. She has had no recurrent regurgitation of blood since arriving. Her hemoglobin is stable. She was in an adult family home in [place]. She also can not say why she was on aspirin and Plavix. She denies history of heart stents, or TIA/CVA. Discharge Providers Provider Date of admission: 01/12/24 00:33 Discharge Date: 01/13/24 Primary care physician: Doctor Eliceo MD Consults: None. Discharge provider: Lj Nava MD Summary Hospital Course Discharge Diagnosis: 1. Upper GI Bleed, present on admission and improved. 2. HTN, present on admission and active. 3. Memory Loss, present on admission and active. Hospital Course: She was admitted for 1 episode of hematemesis. She had no recurrent episodes nor did she have any black or red stool. Her hemoglobin remained stable. She was treated with a PPI b.i.d.. She had no abdominal pain. In the day of discharge she declined any blood draws. It was felt it would be reasonable to treat her with a PPI for 2-3 months for possible ulcer versus gastritis and clinically monitor her at her at her assisted living facility. She was on aspirin and Plavix for unclear reasons, her Plavix will be held indefinitely until follow up. She had recently had epistaxis, but she denied any of this in the several days preceding this episode. Status at Discharge Cognitive/behavioral status at discharge: confused Functional status at discharge: uses cane/walker Overall status at discharge: patient is progressing back to baseline Time Spent with Patient Time spent: Greater than 30 minutes Exam Vital Signs (past 8 hours): - 01/13/24 04:00 01/13/24 08:00 Temperature 97.3 F L Pulse Rate 63 58 L Respiratory Rate 17 20 Blood Pressure 117/61 123/69 Pulse Oximetry 97 95 Oxygen Flow Rate 0 0 Oxygen Delivery Method Room Air Oxygen Flow Rate 0 Narrative Exam Narrative: NAD, alert and oriented. Slow speech. Lungs are clear, normal rate and effort. Heart is regular, no murmur gallop or rub. Abdomen is soft, non distended. Extremities are free of edema. Objective Labs 01/12/24 05:25 01/12/24 05:25 [facility] Social History household members: none Smoking Status: Never smoker Discharge Assessment & Plan Assessment and Plan Assessment: 1. Upper GI Bleed, present on admission and improved. 2. HTN, present on admission and active. 3. Memory Loss, present on admission and active. Plan of Treatment: Discharge back to assisted living facility with PPI b.i.d. for 2-3 months. Would recommend repeat hemoglobin at her next follow up appointment within the next week. Discharge Plan Discharge Plan Patient Disposition: Home Transfer to: [facility] Provider Discharge Comment: Stable for discharge back to assisted living, we will monitor for clinical evidence of bleeding such as hematemesis or blood per rectum. We will hold Plavix for the time being and continue aspirin. Discharge orders & Medications Prescriptions: New pantoprazole 40 mg tablet,delayed release (DR/EC) 40 mg PO BID Qty: 60 2RF Continued metoprolol tartrate 25 mg tablet 25 mg PO DAILY Rx Instructions: hold if SBP <100 or HR <70bpm alendronate 10 mg tablet 10 mg PO DAILY aspirin 81 mg tablet,delayed release (DR/EC) 81 mg PO DAILY lisinopril 5 mg tablet 5 mg PO DAILY ferrous sulfate 324 mg (65 mg iron) tablet,delayed release (DR/EC) 324 mg PO DAILY acetaminophen 325 mg tablet 325 mg PO PRN PRN (Reason: Pain) atorvastatin 20 mg tablet 20 mg PO DAILY sodium chloride 0.9 % Aerosol,[place] 1 spray miscellaneous PRN PRN (Reason: moisten nose) sodium chloride 0.65 % Mist 1 spray INTRANASAL PRN PRN (Reason: nose bleed) Discontinued clopidogrel 75 mg tablet 75 mg PO DAILY Medication counseling provided by Pharmacist: No Follow up/Referrals: Miscellaneous,Doctor, [Primary Care Provider] - Discharge Health Status Multidrug resistant organism: No MDRO Diet/Activity/Treatments Diet: Diet as Tolerated Visit Report/Discharge Packet Instructions: DI for Rectal Bleeding, Pantoprazole Stand Alone Forms: Patient Portal/API Discharge Data Primary Care Provider: Doctor Eliceo Attending Provider: Lew Beavers Admit Date/Time: 01/12/24 00:33
--- NOTE | 2024-01-13 11:47 | CM.DPC ---
DCP Discharge to [facility] Per MD, pt is medically stable to discharge back to her Assisted Living Facility today and no identified barriers to discharge and only one new med and printed the script. SW met bedside with pt and explained role and pt up in bedside chair and has been ambulating with walker in room and back to baseline. Pt agreeable with discharge back to [facility] today. SW faxed signed med list, script, and d/c summary to [facility] to review and called and left msg with RN station and Amador (admin at [facility]) updating on pt discharge and requesting call back to confirm time for transport. PARDEEP updated RN. Plan: SW to follow for return call from [facility] to confirm time of transport back to their facility today. JULIA Brady
--- NOTE | 2024-01-13 11:59 | PC.NURSE ---
Pt is dressed and ready for discharge home ([facility]). [facility] transporter here to pickling solution maker Pt. IV was removed. Went over d/c instructions with Pt -discussed d/c meds, time of last dose, reviewed stroke education, encouraged Pt to try to avoid spicy foods and to drink plenty of fluids to prevent constipation or dehydration. Pt denied further questions and was taken out via w/c by [facility] transport personnel with all belongings. Pt med list and script given to transporter for facility.
== END 2024-01-13 12:03 | disposition home or self-care (01) ==
LOC: ED 21:22 → AC 01-12 00:34
PROVIDERS: Admitting Provider Internal Medicine; Emergency Provider Emergency Medicine; Referring Provider Emergency Medicine; Visit Provider Internal Medicine
DX: K92.2 Gastrointestinal hemorrhage, unspecified (principal); I10 Essential (primary) hypertension; E78.5 Hyperlipidemia, unspecified; R41.3 Other amnesia
CPT/HCPCS: 36415; 74174; 80048; 80053; 81003; 81015; 85014; 85018; 85025; 85610; 85730; 87086; 93005; 96361; 96374; 96376; 99284; G0378; J2470; J7121; Q9967

== ENCOUNTER → 2024-08-11 08:08 | Outpatient (ROUT) | payer MEDICARE, MEDICAID, SELFPAY ==
[2024-01-12 02:11] VITALS: BMI 30.2
[2024-08-11 08:59] LABS: Hemoglobin A1C% w Est Avg Glu 5.3 % (4.0-6.0)
[2024-08-11 09:12] LABS: HEMOLYSIS < 15 (0-50); Iron 57 ug/dL (37-170)
[2024-08-11 09:15] LABS: Alanine Aminotransferase 11 IU/L (<35); Albumin 3.8 g/dL (3.5-5.0); Albumin Globulin Ratio 1.7 (1.0-2.8); Alkaline Phosphatase 88 U/L (38-126); Aspartate Aminotransferase 21 IU/L (14-36); BUN Creatinine Ratio 22.7 (6-22); Bilirubin Total 0.6 mg/dL (0.2-1.3); Blood Urea Nitrogen 22 mg/dL (7-17); Calcium 9.6 mg/dL (8.4-10.2); Carbon Dioxide 24 mmol/L (22-32); Chloride 106 mmol/L (98-107); Estimated Glomerular Filt Rate 59 mL/min (>60); Globulin 2.3 g/dL (1.7-4.1); Glucose 91 mg/dL (80-110); HEMOLYSIS < 15 (0-50); Potassium 4.3 mmol/L (3.4-5.1); Sodium 138 mmol/L (137-145); Total Protein 6.1 g/dL (6.3-8.2)
[2024-08-11 09:24] LABS: Percent Iron Saturation 23 % (15-50); Total Iron Binding Capacity 253 ug/dL (265-497); Transferrin 229 mg/dL (206-381)
== END ==
PROVIDERS: Visit Provider Neuromusculoskeletal Medicine & OMM
DX: Z13.9 Encounter for screening, unspecified (principal)
CPT/HCPCS: 36415; 80053; 83036; 83540; 83550

== ENCOUNTER 2024-08-17 15:42 | Emergency (ER) | payer MEDICARE, MEDICAID, SELFPAY ==
[2024-01-12 02:11] VITALS: BMI 30.2
[2024-08-17] VITALS (16 sets, daily range): BP systolic 123–152; BP diastolic 60–83; PULSE 51–64; RESP 18–25; TEMP 36.3; O2SAT 93–98
--- NOTE | 2024-08-17 15:49 | ED.ALLEREA ---
HPI - Allergic Reaction General Chief complaint: Allergic Reaction Stated complaint: Lip swelling,allergic reaction Time Seen by Provider: 08/17/24 15:47 History of Present Illness HPI narrative: 79-year-old female arriving by ambulance for swollen lips. It was noticed earlier today. Patient says she has not had this in the past. She denies shortness of breath wheezing or itching. No recent exposures to new medications or foods. She does take lisinopril Related Data Home Medications Medication Instructions Recorded Confirmed acetaminophen 325 mg tablet 325 mg PO PRN PRN Pain 01/12/24 01/12/24 alendronate 10 mg tablet 10 mg PO DAILY 01/12/24 01/12/24 aspirin 81 mg tablet,delayed 81 mg PO DAILY 01/12/24 01/12/24 release atorvastatin 20 mg tablet 20 mg PO DAILY 01/12/24 01/12/24 ferrous sulfate 324 mg (65 mg 324 mg PO DAILY 01/12/24 01/12/24 iron) tablet,delayed release lisinopril 5 mg tablet 5 mg PO DAILY 01/12/24 01/12/24 metoprolol tartrate 25 mg tablet 25 mg PO DAILY 01/12/24 01/12/24 sodium chloride 0.65 % nasal mist 1 spray intranasal PRN PRN nose 01/12/24 01/12/24 bleed sodium chloride 0.9 % spray 1 spray miscellaneous PRN PRN 01/12/24 01/12/24 moisten nose Previous Rx's Medication Instructions Recorded pantoprazole 40 mg tablet,delayed 40 mg PO BID #60 tabs 01/13/24 release cetirizine 10 mg capsule (All Day 10 mg PO DAILY #7 caps 08/17/24 Allergy (cetirizine)) prednisone 20 mg tablet 40 mg (2 x 20 mg) PO DAILY #10 tabs 08/17/24 Allergies Allergy/AdvReac Type Severity Reaction Status Date / Time No Known Drug Allergies Allergy Verified 12/15/23 14:11 Patient History Social History household members: none Smoking Status: Never smoker Smoking Status: Never smoker Exam Initial Vital Signs Initial Vital Signs: Vital Signs Temperature 97.3 F L 08/17/24 15:42 Pulse Rate 57 L 08/17/24 15:42 Respiratory Rate 18 08/17/24 15:42 Blood Pressure 129/71 08/17/24 15:42 Pulse Oximetry 95 08/17/24 15:42 Oxygen Delivery Method Room Air 08/17/24 15:42 Const Other: appears to be in no distres HENMT HENDC Other: Upper and lower lips are considerably swollen. Tongue is not appreciably swollen oropharynx is not swollen Neck Other: neck is supple no stridor Resp Other: no wheezing no respiratory distress good Cardio Other: regular rhythm rate no murmur or gallop Skin Other: warm and dry without urticaria or other rash Course Orders Ordered: Discontinued Medications Methylprednisolone (Methylprednisolone 125 Mg/2 Ml Vial) 125 mg IV NOW ONE Stop: 08/17/24 15:50 Last Admin: 08/17/24 15:51 Dose: 125 mg Documented By: UMESH Reevaluation(s) Reevaluation #1: lip swelling is improved, no respiratory distress Vital Signs Vital signs: Vital Signs - 8 hr 08/17/24 15:42 08/17/24 15:45 08/17/24 15:46 Temperature 97.3 F L Pulse Rate 57 L 56 L Respiratory Rate 18 Blood Pressure 129/71 129/71 Pulse Oximetry 95 95 Oxygen Delivery Method Room Air 08/17/24 15:46 08/17/24 16:00 08/17/24 16:10 Temperature Pulse Rate 52 L 55 L Respiratory Rate 22 Blood Pressure 123/71 Pulse Oximetry 98 97 Oxygen Delivery Method 08/17/24 16:10 08/17/24 16:30 08/17/24 17:00 Temperature Pulse Rate 51 L 53 L Respiratory Rate 24 20 21 Blood Pressure Pulse Oximetry 97 96 95 Oxygen Delivery Method 08/17/24 17:25 08/17/24 17:25 08/17/24 17:30 Temperature Pulse Rate 52 L 54 L Respiratory Rate 20 Blood Pressure 137/81 Pulse Oximetry 96 96 Oxygen Delivery Method 08/17/24 17:32 08/17/24 17:32 08/17/24 18:00 Temperature Pulse Rate 54 L 57 L Respiratory Rate 23 22 Blood Pressure 134/83 Pulse Oximetry 95 94 Oxygen Delivery Method 08/17/24 18:24 08/17/24 18:24 08/17/24 18:30 Temperature Pulse Rate 64 55 L Respiratory Rate 25 H 21 Blood Pressure 152/71 H Pulse Oximetry 96 Oxygen Delivery Method MDM - Allergic Reaction MDM Narrative Medical decision making narrative: 79-year-old female presenting with lip swelling consistent with angioedema. No new exposures to medications or foods etc.. She does take lisinopril. She was given cetirizine prior to arrival and Solu-Medrol here. Swelling improved. May be related to her SANGEETHA inhibitor I have ordered it to be stopped. Additionally, or the prednisone taper and cetirizine. Indications for return to the emergency department or review Discharge Plan Departure Patient Disposition: Home Clinical Impression: Angioedema Qualifiers: Encounter type: initial encounter Qualified Code(s): T78.3XXA - Angioneurotic edema, initial encounter Activity Restrictions/Additional Instructions: Emergency department evaluation today shows isolated lip swelling consistent with angioedema. This may be related to her lisinopril so this medication should be stopped. It is also possible that this is an allergic reaction. For this reason I recommend a tapering dose of prednisone and cetirizine daily for 1 week. Return to the emergency department immediately for shortness of breath itching hypotension recurrent swelling of the lips tongue or throat. !!! lisinopril must be stopped. !! Prescriptions: New prednisone 20 mg tablet 40 mg PO DAILY Qty: 10 0RF Rx Instructions: 40 mg p.o. daily for 3 days, then 20 mg p.o. daily for 3 days then 10 mg p.o. daily for 3 days then discontinue All Day Allergy (cetirizine) 10 mg capsule 10 mg PO DAILY Qty: 7 0RF No Action metoprolol tartrate 25 mg tablet 25 mg PO DAILY Rx Instructions: hold if SBP <100 or HR <70bpm alendronate 10 mg tablet 10 mg PO DAILY aspirin 81 mg tablet,delayed release (DR/EC) 81 mg PO DAILY lisinopril 5 mg tablet 5 mg PO DAILY ferrous sulfate 324 mg (65 mg iron) tablet,delayed release (DR/EC) 324 mg PO DAILY acetaminophen 325 mg tablet 325 mg PO PRN PRN (Reason: Pain) atorvastatin 20 mg tablet 20 mg PO DAILY sodium chloride 0.9 % Aerosol,[place] 1 spray miscellaneous PRN PRN (Reason: moisten nose) sodium chloride 0.65 % Mist 1 spray INTRANASAL PRN PRN (Reason: nose bleed) pantoprazole 40 mg tablet,delayed release (DR/EC) 40 mg PO BID Qty: 60 2RF Referrals: Miscellaneous,Doctor, [Primary Care Provider] - Stand Alone Forms: Patient Portal/API/Survey
[2024-08-17] MEDS: methylPREDNISolone 125 MG/2 ML VIAL IV (15:51)
--- NOTE | 2024-08-17 16:13 | PC.NURSE ---
Pt reports that she feels like the swelling in her lips has gone down. Airway still intact, no further signs of allergic reaction. Will continue to monitor
--- NOTE | 2024-08-17 19:22 | PC.NURSE ---
Attempted to call [facility] x2 to inform them that she will be returning to facility by taxi. 2 messages left
== END 2024-08-17 20:08 | disposition home or self-care (01) ==
PROVIDERS: Emergency Provider Emergency Medicine
DX: T78.3XXA Angioneurotic edema, initial encounter (principal)
CPT/HCPCS: 96374; 99283; 99284; J2919

== ENCOUNTER 2024-11-30 11:29 | Emergency (ER) | payer MEDICARE, MEDICAID, SELFPAY ==
[2024-01-12 02:11] VITALS: BMI 30.2
[2024-11-30 11:36] VITALS: BP 129/72; PULSE 65; RESP 16; TEMP 36.3; O2SAT 97
--- NOTE | 2024-11-30 13:07 | PC.NURSE ---
Red spot noted on right arm and another on left inner thigh. Pt reports she has itched at the one on her arm. Pt states sometimes she picks. Pt denies pus. Pt denies being bitten by a bug.
--- NOTE | 2024-11-30 15:31 | ED.SKABFB ---
HPI - Skin/Abscess/Foreign Bdy <Becka Crisostomo PA-C - Last Filed: 11/30/24 15:49> General Chief complaint: Skin/Abscess/Foreign Body Stated complaint: wounds Time Seen by Provider: 11/30/24 13:39 Source: EMS Mode of arrival: EMS Limitations: no limitations History of Present Illness HPI narrative: 79-year-old female who is a resident of [facility] living presents to the ED with multiple sores on bilateral upper and lower limbs. The staff at [facility] noted the wounds and were concerned about infection. 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 No fever, chills or other symptoms related by the staff. Patient denies any other symptoms. Related Data Home Medications ?Medication ?Instructions ?Recorded ?Confirmed acetaminophen 325 mg tablet 325 mg PO PRN PRN Pain 01/12/24 01/12/24 alendronate 10 mg tablet 10 mg PO DAILY 01/12/24 01/12/24 aspirin 81 mg tablet,delayed 81 mg PO DAILY 01/12/24 01/12/24 release atorvastatin 20 mg tablet 20 mg PO DAILY 01/12/24 01/12/24 ferrous sulfate 324 mg (65 mg 324 mg PO DAILY 01/12/24 01/12/24 iron) tablet,delayed release lisinopril 5 mg tablet 5 mg PO DAILY 01/12/24 01/12/24 metoprolol tartrate 25 mg tablet 25 mg PO DAILY 01/12/24 01/12/24 sodium chloride 0.65 % nasal mist 1 spray intranasal PRN PRN nose 01/12/24 01/12/24 bleed sodium chloride 0.9 % spray 1 spray miscellaneous PRN PRN 01/12/24 01/12/24 moisten nose Previous Rx's ?Medication ?Instructions ?Recorded pantoprazole 40 mg tablet,delayed 40 mg PO BID #60 tabs 01/13/24 release cetirizine 10 mg capsule (All Day 10 mg PO DAILY #7 caps 08/17/24 Allergy (cetirizine)) prednisone 20 mg tablet 40 mg (2 x 20 mg) PO DAILY #10 tabs 08/17/24 Allergies Allergy/AdvReac Type Severity Reaction Status Date / Time ceftriaxone Allergy unknown Verified 11/30/24 11:36 Review of Systems <Becka Crisostomo PA-C - Last Filed: 11/30/24 15:49> Constitutional Constitutional: Denies chills, Denies fatigue, Denies fever(s), Denies frequent falls, Denies lethargy and Denies weakness Eyes Eyes: Denies change in vision, Denies eye discharge, Denies irritation and Denies loss of vision ENT Ears, Nose, Mouth, and Throat: Denies change in voice, Denies dizziness, Denies neck pain, Denies sore throat and Denies throat swelling Cardiovascular Cardiovascular: Denies chest pain, Denies irregular heart rhythm, Denies lightheadedness, Denies palpitations, Denies dyspnea, Denies dyspnea on exertion and Denies orthopnea Respiratory Respiratory: Denies cough, Denies dyspnea, Denies dyspnea on exertion and Denies wheezing Gastrointestinal Gastrointestinal: Denies abdominal pain, Denies change in bowel habits, Denies diarrhea, Denies nausea and Denies vomiting Musculoskeletal Musculoskeletal: Denies neck pain and Denies numbness Integumentary/Breasts Skin/Breast: Denies pruritus, Denies erythema, Denies rash and Reports wounds Neurologic Neurologic: Denies behavioral changes, Denies confusion, Denies dizziness, Denies frequent falls, Denies loss of vision, Denies numbness and Denies weakness Psychiatric Psychiatric: Denies anxiety, Denies behavioral changes, Denies confusion, Denies depression, Denies homicidal ideation and Denies suicidal ideation Endocrine Endocrine: Denies fatigue, Denies flushing and Denies palpitations Hematologic/Lymphatic Hematologic/Lymphatic: Denies easy bruising Allergic/Immunologic Allergic/Immunologic: Denies urticaria, Denies throat swelling and Denies wheezing Patient History <Becka Crisostomo PA-C - Last Filed: 11/30/24 15:49> Social History household members: none Exam <Becka Crisostomo PA-C - Last Filed: 11/30/24 15:49> Narrative Exam Narrative: Const General:?cooperative, healthy appearing and comfortable [facility] Head:?normal to inspection Ears:?hearing grossly normal bilaterally Nose:?external nose normal Face and sinus:?normal facial exam and sinuses nontender Mouth:?oral mucosae normal Throat:?posterior oropharynx normal Eyes General:?appearance normal, both eyes and all related structures Neck Neck:?normal visual inspection and no lymphadenopathy noted Resp Effort & Inspection:?normal respiratory effort Auscultation:?clear to auscultation bilaterally Cardio Rate:?regular rate Rhythm:?regular rhythm Integumentary Multiple, discrete, erythematous, circular wounds/sores to bilateral legs, arms. No swelling. No discharge noted on exam. Neurovascularly intact. Neuro General:?patient alert, patient awake and patient oriented x3 Initial Vital Signs Initial Vital Signs: Vital Signs Temperature 97.3 F L 11/30/24 11:36 Pulse Rate 65 11/30/24 11:36 Respiratory Rate 16 11/30/24 11:36 Blood Pressure 129/72 11/30/24 11:36 Pulse Oximetry 97 11/30/24 11:36 Oxygen Delivery Method Room Air 11/30/24 11:36 <Keith Cat MD - Last Filed: 12/16/24 06:58> Initial Vital Signs Initial Vital Signs: Vital Signs Temperature 97.3 F L 11/30/24 11:36 Pulse Rate 65 11/30/24 11:36 Respiratory Rate 16 11/30/24 11:36 Blood Pressure 129/72 11/30/24 11:36 Pulse Oximetry 97 11/30/24 11:36 Oxygen Delivery Method Room Air 11/30/24 11:36 Course <Becka Crisostomo PA-C - Last Filed: 11/30/24 15:49> Vital Signs Vital signs: Vital Signs - 8 hr 11/30/24 11:36 Temperature 97.3 F L Pulse Rate 65 Respiratory Rate 16 Blood Pressure 129/72 Pulse Oximetry 97 Oxygen Delivery Method Room Air <Keith Cat MD - Last Filed: 12/16/24 06:58> Vital Signs Vital signs: Vital Signs - 8 hr 11/30/24 11:36 Temperature 97.3 F L Pulse Rate 65 Respiratory Rate 16 Blood Pressure 129/72 Pulse Oximetry 97 Oxygen Delivery Method Room Air MDM - Skin/Abscess/Foreign Bdy <Becka Crisostomo PA-C - Last Filed: 11/30/24 15:49> MDM Narrative Medical decision making narrative: 79-year-old female who is a resident of [facility] presents to the ED with multiple sores on bilateral upper and lower limbs. On exam, it appears that patient has multiple discrete wounds or sores on bilateral legs and arms, some of which appear to be infected. Will cover with antibiotics. Recommend follow-up with PCP. ED return precautions discussed. Medical records reviewed: Yes Discharge Plan Departure Patient Disposition: Home Clinical Impression: Wounds, multiple Instructions: DI for Wound Infection Activity Restrictions/Additional Instructions: You were evaluated in the emergency department for wounds to your legs and arms. You are being prescribed antibiotics for it. Please refrain from picking the wounds. Please follow-up with your PCP as soon as possible. Return to the ED if you have worsening symptoms. Prescriptions: No Action metoprolol tartrate 25 mg tablet 25 mg PO DAILY Rx Instructions: hold if SBP <100 or HR <70bpm alendronate 10 mg tablet 10 mg PO DAILY aspirin 81 mg tablet,delayed release (DR/EC) 81 mg PO DAILY lisinopril 5 mg tablet 5 mg PO DAILY ferrous sulfate 324 mg (65 mg iron) tablet,delayed release (DR/EC) 324 mg PO DAILY acetaminophen 325 mg tablet 325 mg PO PRN PRN (Reason: Pain) atorvastatin 20 mg tablet 20 mg PO DAILY sodium chloride 0.9 % Aerosol,[place] 1 spray miscellaneous PRN PRN (Reason: moisten nose) sodium chloride 0.65 % Mist 1 spray INTRANASAL PRN PRN (Reason: nose bleed) pantoprazole 40 mg tablet,delayed release (DR/EC) 40 mg PO BID Qty: 60 2RF prednisone 20 mg tablet 40 mg PO DAILY Qty: 10 0RF Rx Instructions: 40 mg p.o. daily for 3 days, then 20 mg p.o. daily for 3 days then 10 mg p.o. daily for 3 days then discontinue All Day Allergy (cetirizine) 10 mg capsule 10 mg PO DAILY Qty: 7 0RF Referrals: Doctor Fenton MD [Primary Care Provider, Medical] Stand Alone Forms: Patient Portal/API ED Sign-out <Keith Cat MD - Last Filed: 12/16/24 06:58> Cosign ED Attending Joseature Attestation: I was immediately available in the department for consultation. ?This documentation has been reviewed and I agree with assessment and plan. Supervised by Keith Cat MD
--- NOTE | 2024-11-30 15:48 | PC.NURSE ---
Addendum entered by Ekta Khan R.N. 11/30/24 16:05: Attempted to reach [facility] again via phone at this time ([phone]), no answer again and additional message left. Original Note: [facility] called @ 1021 to confirm Pt's pharmacy for discharge medications and to discuss available options to get patient back to room at rehab center. No answer and voice message left on identified voicemail.
[2024-11-30 17:17] VITALS: BP 130/90; PULSE 52; RESP 16; TEMP 36.6; O2SAT 94
== END 2024-11-30 17:18 | disposition home or self-care (01) ==
PROVIDERS: Emergency Provider Student in an Organized Health Care Education/Training Program
DX: T07.XXXA Unspecified multiple injuries, initial encounter (principal)
CPT/HCPCS: 99281

== ENCOUNTER 2025-04-04 16:09 | Emergency (ER) | payer MEDICARE, MEDICAID, SELFPAY ==
[2024-01-12 02:11] VITALS: BMI 30.2
[2025-04-04 16:19] VITALS: BP 122/77; PULSE 57; RESP 18; TEMP 36.6; O2SAT 96; BMI 30.2
--- NOTE | 2025-04-04 16:30 | DI.RAD.S_ITS ---
PROCEDURE: XR HIP W PEL IF DONE BILAT 2V INDICATIONS: fall, hip pain TECHNIQUE: AP pelvis with lateral view(s) of the bilateral hip(s). COMPARISON: None. FINDINGS: Bones: No fractures or dislocations. Pelvic ring appears intact. No suspicious bony lesions. 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 Soft tissues: The visualized bowel gas pattern is normal. No suspicious soft tissue calcifications. IMPRESSION: No acute bony abnormality. Dictated by: Luis Enrique Bella M.D. on 04/04/2025 at 16:58 Approved by: Luis Enrique Bella M.D. on 04/04/2025 at 16:58
--- NOTE | 2025-04-04 16:30 | DI.CT.S_ITS ---
PROCEDURE: CT CERVICAL SPINE WO CON INDICATIONS: fall, c 2 and c3 pain TECHNIQUE: Noncontrast 3 mm thick sections acquired from the skull base to the T4 level. Sagittal and coronal reformats were then constructed. For radiation dose reduction, the following was used: automated exposure control, adjustment of mA and/or kV according to patient size. COMPARISON: None. FINDINGS: Image quality: Excellent. Bones: No fractures or dislocations. Visualized superior ribs are intact. 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 Mildly degenerated disc at C5-6 results in mild spinal canal stenosis at this level due to posteriorly directed disc osteophyte complex. Soft tissues: Prevertebral soft tissues are normal in thickness. No paravertebral hematomas. No apical pneumothoraces. IMPRESSION: No displaced fracture or traumatic subluxation. Dictated by: Marcio James M.D. on 04/04/2025 at 17:01 Approved by: Marcio James M.D. on 04/04/2025 at 17:02
--- NOTE | 2025-04-04 16:30 | DI.CT.S_ITS ---
PROCEDURE: CT HEAD/BRAIN WO CON INDICATIONS: fall, not anticoagulated TECHNIQUE: Noncontrast 4.5 mm thick angled axial sections acquired from the foramen magnum to the vertex, with coronal and sagittal reformats. For radiation dose reduction, the following was used: automated exposure control, adjustment of mA and/or kV according to patient size. COMPARISON: None. FINDINGS: Image quality: Diagnostic. CSF spaces: Basal cisterns are patent. No extra-axial fluid collections. The ventricles are symmetric in size and shape. Brain: No intracranial bleeds or mass effect. There is cerebral volume loss, with resultant ventricular and sulcal prominence. There are periventricular and deep white matter chronic small vessel ischemic changes. There is intracranial internal carotid artery atherosclerosis. Skull and face: Calvarium and visualized facial bones appear intact, without suspicious lesions. Sinuses: Visualized sinuses and mastoids are clear. IMPRESSION: No acute intracranial pathology. Dictated by: Marcio James M.D. on 04/04/2025 at 17:00 Approved by: Marcio James M.D. on 04/04/2025 at 17:01
[2025-04-04] MEDS: ACETAMINOPHEN 325 MG TABLET 975 MG PO (18:36)
[2025-04-04 19:15] VITALS: PULSE 56; O2SAT 95
[2025-04-04 19:30] VITALS: PULSE 54; RESP 26; O2SAT 95
--- NOTE | 2025-04-04 19:46 | ED.FALL ---
HPI - Fall General Chief Complaint: Fall Stated Complaint: unwitnessed fall, R hip and neck pain Time Seen by Provider: 04/04/25 16:15 Source: EMS Mode of arrival: EMS History of Present Illness HPI Narrative: 80-year-old woman in [facility] facility with an unwitnessed fall history of hypertension, cognitive deficits prior GI bleed, brought in by medics with primary complaint mid cervical pain. No obvious trauma. One point she states her left hip hurts and then to the next question are reports that her right hip hurts. She is able to lift both legs without significant difficulty. She has not tried ambulating after her fall. She has no other extremity complaints Related Data Home Medications ?Medication ?Instructions ?Recorded ?Confirmed acetaminophen 325 mg tablet 325 mg PO PRN PRN Pain 01/12/24 01/12/24 alendronate 10 mg tablet 10 mg PO DAILY 01/12/24 01/12/24 aspirin 81 mg tablet,delayed 81 mg PO DAILY 01/12/24 01/12/24 release atorvastatin 20 mg tablet 20 mg PO DAILY 01/12/24 01/12/24 ferrous sulfate 324 mg (65 mg 324 mg PO DAILY 01/12/24 01/12/24 iron) tablet,delayed release lisinopril 5 mg tablet 5 mg PO DAILY 01/12/24 01/12/24 metoprolol tartrate 25 mg tablet 25 mg PO DAILY 01/12/24 01/12/24 sodium chloride 0.65 % nasal mist 1 spray intranasal PRN PRN nose 01/12/24 01/12/24 bleed sodium chloride 0.9 % spray 1 spray miscellaneous PRN PRN 01/12/24 01/12/24 moisten nose Previous Rx's ?Medication ?Instructions ?Recorded pantoprazole 40 mg tablet,delayed 40 mg PO BID #60 tabs 01/13/24 release cetirizine 10 mg capsule (All Day 10 mg PO DAILY #7 caps 08/17/24 Allergy (cetirizine)) prednisone 20 mg tablet 40 mg (2 x 20 mg) PO DAILY #10 tabs 08/17/24 Allergies Allergy/AdvReac Type Severity Reaction Status Date / Time ceftriaxone Allergy unknown Verified 04/04/25 16:19 Review of Systems Review of Systems Narrative: Pertinent positive and negative findings as per HPI Patient History Medical History (Updated 04/04/25 @ 19:55 by Madison Edwards MD) 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 HTN (hypertension) Social History household members: none Exam Initial Vital Signs Initial Vital Signs: Vital Signs Temperature 97.8 F 04/04/25 16:19 Pulse Rate 57 L 04/04/25 16:19 Respiratory Rate 18 04/04/25 16:19 Blood Pressure 122/77 04/04/25 16:19 Pulse Oximetry 96 04/04/25 16:19 Oxygen Delivery Method Room Air 04/04/25 16:19 General: Frail, older appearing, cervical stabilizer in place, no complaints of pain HEENT: Moist mucous membranes, normal sclera with reactive pupils, Neck: Tenderness midline C2-C3, 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 Full and symmetrical air movement Chest: No tenderness with palpation or manipulation of thorax or lumbar spine Cardiac: Regular rate and rhythm no murmurs no bruits Abdomen: Soft, nontender, no rebound or guarding, no flank pain Pelvis: No tenderness with manipulation of pelvic ring, she is able to lift both legs off the bed independently without significant hip pain Skin: Warm and dry, no rashes Neurologic: Grossly neurologically intact with no obvious asymmetries or abnormalities Extremities: No trauma, Psych: Cooperative but minimal insight Course Orders Ordered: ED Orders 04/04/25 16:30 CT cervical spine wo con Stat CT head/brain wo con Stat XR hip w pel if done BILAT 2V Stat Discontinued Medications Acetaminophen (Acetaminophen 325 Mg Tablet) 975 mg PO NOW ONE Stop: 04/04/25 16:31 Last Admin: 04/04/25 18:36 Dose: 975 mg Documented By: ALEJANDRA Vital Signs Vital signs: Vital Signs - 8 hr 04/04/25 16:19 04/04/25 19:15 04/04/25 19:30 Temperature 97.8 F Pulse Rate 57 L 56 L 54 L Respiratory Rate 18 26 H Blood Pressure 122/77 Pulse Oximetry 96 95 95 Oxygen Delivery Method Room Air 04/04/25 20:00 04/04/25 20:41 Temperature Pulse Rate 56 L Respiratory Rate 22 Blood Pressure 137/81 Pulse Oximetry 95 Oxygen Delivery Method MDM - Fall Lab Data Labs: Urine Dip Bedside Urine Glucose Negative Bedside Urine Bilirubin - Negative Bedside Urine Ketone - Negative Urine Specific Hurt 1.010 Bedside Urine Occult Blood - Negative Bedside Urine pH 6.0 Bedside Urine Protein - Negative Bedside Urine Urobilinogen - Negative Bedside Urine Nitrite - Negative Bedside Urine Leukocytes - Negative Esterase MDM Narrative Medical decision making narrative: CC: Unwitnessed fall at [facility] Complicating co-morbidities: Cognitive decline, osteoporosis, chronic anemia hypertension Data collected from: patient, medics Medical records reviewed: MAR from nursing facility is reviewed Differential considered: Cervical spine injury, intracranial hemorrhage, orthopedic injury, pneumothorax, hemothorax, pelvic fractures hip fractures Exam documented above, pertinent findings include: Aside from the midline cervical spine pain exam is relatively benign. 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 Patient is unconcerned by this and states that it has been there for ?years and years?. Imaging studies independently reviewed: CT scan of the cervical spine shows no acute fracture CT scan of the head is unremarkable Pelvic and hip x-rays bilaterally showed no pelvic or hip fractures Discussion: 80-year-old woman with unwitnessed fall at [facility]. Some minor neck pain with CT scan ruling out acute fracture. No other signs of injury. She is able to ambulate without difficulty in the emergency department. No evidence of illness, bleeding, no indication for further workup and patient will be helped back to her living facility this evening Discharge Plan Departure Patient Disposition: Home Clinical Impression: Fall, Neck strain Activity Restrictions/Additional Instructions: Thank you for coming in today We did a CT scan of your head and of your neck. No obvious fractures or bleeding into your head and no cervical spine injuries No pelvic ring or hip fractures were appreciated on x-ray You are not complaining of any pain, you are able to walk around the emergency department without difficulty. I would recommend that you do use a cane or a walker to avoid future falls. However there was no indication for hospital admission and we will help you get back home safely to your living facility Prescriptions: No Action metoprolol tartrate 25 mg tablet 25 mg PO DAILY Rx Instructions: hold if SBP <100 or HR <70bpm alendronate 10 mg tablet 10 mg PO DAILY aspirin 81 mg tablet,delayed release (DR/EC) 81 mg PO DAILY lisinopril 5 mg tablet 5 mg PO DAILY ferrous sulfate 324 mg (65 mg iron) tablet,delayed release (DR/EC) 324 mg PO DAILY acetaminophen 325 mg tablet 325 mg PO PRN PRN (Reason: Pain) atorvastatin 20 mg tablet 20 mg PO DAILY sodium chloride 0.9 % Aerosol,[facility] 1 spray miscellaneous PRN PRN (Reason: moisten nose) sodium chloride 0.65 % Mist 1 spray INTRANASAL PRN PRN (Reason: nose bleed) pantoprazole 40 mg tablet,delayed release (DR/EC) 40 mg PO BID Qty: 60 2RF prednisone 20 mg tablet 40 mg PO DAILY Qty: 10 0RF Rx Instructions: 40 mg p.o. daily for 3 days, then 20 mg p.o. daily for 3 days then 10 mg p.o. daily for 3 days then discontinue All Day Allergy (cetirizine) 10 mg capsule 10 mg PO DAILY Qty: 7 0RF Stand Alone Forms: Patient Portal/API
[2025-04-04 20:00] VITALS: PULSE 56; RESP 22; O2SAT 95
[2025-04-04 20:41] VITALS: BP 137/81
== END 2025-04-04 20:46 | disposition home or self-care (01) ==
PROVIDERS: Emergency Provider Emergency Medicine
DX: S16.1XXA Strain of muscle, fascia and tendon at neck level, initial encounter (principal); M25.551 Pain in right hip; W19.XXXA Unspecified fall, initial encounter
CPT/HCPCS: 70450; 72125; 73521; 81003; 99283; 99284